=== PATIENT | female | born 1990 | race African-American/Black ===

== ENCOUNTER 2016-12-18 05:07 | Emergency (ER) | payer MEDICAID ==
[~2016-12-18] VITALS: Ht 152.4 cm; Wt 51.0 kg
[2016-12-18] MEDS ORDERED: SODIUM CHLORIDE 0.9% 1,000 ML IV ONE (06:13)
[2016-12-18] MEDS ORDERED: LEVETIRACETAM 500MG PREMIX 100 ML IV ONE (06:30)
[2016-12-18] MEDS ORDERED: LEVETIRACETAM 500MG TABLET PO ONE (06:30)
[2016-12-18 06:46] LABS: BASOPHILS % 0.6 % (0.0-2.0); EOSINOPHILS % 0.1 % (0.0-5.0); HEMATOCRIT. 40.9 % (36.0-48.0); HEMOGLOBIN. 13.9 g/dL (12.0-16.0); LYMPHOCYTES % 9.6 % (20.0-50.0); MEAN CORPUSCULAR HEMOGLOBIN 29.6 pg (28.0-32.0); MEAN CORPUSCULAR VOLUME 86.8 fL (81.0-99.0); MEAN PLATELET VOLUME 9.5 fl (7.4-10.4); MONOCYTES % 6.6 % (2.0-8.0); NEUTROPHILS % 83.1 % (40.0-76.0); PLATELET 197 x1000/uL (130-400); RED CELL DISTRIBUTION WIDTH 14.3 % (11.6-14.6)
[2016-12-18 06:47] LABS: CHLORIDE 110 mEq/L (98-107)
[2016-12-18 06:50] LABS: PARTIAL THROMBOPLASTIN TIME 24.8 sec (23.4-31.0); PROTHROMBIN TIME 10.3 sec (9.4-11.6)
[2016-12-18 06:53] LABS: CARBON DIOXIDE 22 mEq/L (21-32); ETHANOL BLOOD < 10 mg/dL
[2016-12-18 07:01] LABS: HCG SCREEN NEGATIVE
[2016-12-18 07:06] LABS: *AMPHETAMINES SCREEN URINE NEGATIVE (NEGATIVE); *BARBITURATES SCREEN URINE NEGATIVE (NEGATIVE); *BENZODIAZEPINES SCREEN URINE NEGATIVE (NEGATIVE); *COCAINE SCREEN URINE NEGATIVE (NEGATIVE); METHADONE URINE SCREEN NEGATIVE (NEGATIVE); OPIATES URINE SCREEN NEGATIVE (NEGATIVE); PHENCYCLIDINE URINE SCREEN NEGATIVE (NEGATIVE)
[2016-12-18] MEDS ORDERED: ONDANSETRON HCL 4MG/2ML VIAL IV ONE (07:15)
[2016-12-18] MEDS ORDERED: MORPHINE SULFATE 4 MG/ML CPJ (NOT FOR IM USE) IV ONE (07:15)
[2016-12-18 07:16] LABS: CANNABINOID URINE SCREEN PRESUMTIVE POSITIVE (NEGATIVE)
[2016-12-18 08:17] VITALS: BP 102/71
== END 2016-12-18 08:57 | disposition home or self-care (01) ==
LOC: ER 05:07
DX: R56.9 Unspecified convulsions (principal); R51 Headache; I10 Essential (primary) hypertension; F17.200 Nicotine dependence, unspecified, uncomplicated
CPT/HCPCS: 36415; 70450; 80048; 80305; 83735; 84703; 85025; 85610; 85730; 96365; 96375; 99285; G0482; J1953; J2270; J2405; J7030; Z7610

== ENCOUNTER 2017-02-22 19:50 | Emergency (ER) | payer MEDICAID ==
[~2017-02-22] VITALS: Ht 162.6 cm; Wt 61.0 kg
[2017-02-23] MEDS: ONDANSETRON 4MG ODT PO ONE (00:08)
[2017-02-23 00:37] VITALS: BP 105/67
== END 2017-02-23 00:46 | disposition home or self-care (01) ==
LOC: ER 19:50
DX: R56.9 Unspecified convulsions (principal); Z87.820 Personal history of traumatic brain injury; Z88.0 Allergy status to penicillin
CPT/HCPCS: 81025; 99283; Q0162; Z7610